=== PATIENT | male | born 1940 | race Caucasian/White ===

== ENCOUNTER → 2017-12-12 | Outpatient (CLI) | payer MEDICARE ==
[~2017-12-12] MED LIST: FINA5TAB6 PO; LISI10TA PO; MULT-358 PO; OXYC1TAB87 PO; [UNRECOGNIZED DRUG - CODE] PO
--- NOTE | 2017-12-12 12:43 | Diagnostic Imaging Report ---
PROCEDURE: MR imaging cervical spine without contrast. TECHNIQUE: Multiplanar, multisequence MR imaging of the cervical spine was performed without contrast. INDICATION: Neck stiffness for several months, increasing in severity. Patient also complains of right arm and shoulder pain as well as right hand numbness and tingling. COMPARISON: No prior studies are available for comparison. FINDINGS: Curvature and alignment is within normal limits. 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 There is multilevel degenerative disc disease with variable disc space narrowing and desiccation as well as marginal osteophyte formation. Cervical spinal cord demonstrates normal homogeneous signal intensity and normal morphology. C2-3: Central canal is patent. There is some endplate osteophytes and uncovertebral joint degenerative change however no neural foraminal narrowing is seen. C3-4: Broad-based disc/osteophyte complex and uncovertebral joint degenerative change does result in significant bilateral neural foraminal stenosis, greatest on the right. Very mild central canal narrowing is seen. C4-5: Prominent right-sided uncovertebral joint degenerative change does result in moderate neural foraminal narrowing. Left neural foramen shows mild narrowing. Central canal is patent. C5-6: Prominent uncovertebral joint degenerative changes seen bilaterally, greater on the right resulting in significant bilateral neural foraminal stenosis, right greater. Central canal is patent. C6-7: Central canal is patent. Endplate osteophytes and uncovertebral joint degenerative change result in significant bilateral neural foraminal stenosis. C7-T1: Central canal and neural foramina are patent. Paraspinous tissues are unremarkable. IMPRESSION: Cervical spondylosis. There is multilevel neural foraminal narrowing described level by level above. Mild central canal narrowing is also seen at C3-4 level. Dictated by: Dictated on workstation # [id number]
== END ==
LOC: RAD 10:40
PROVIDERS: ATTEND Physician Assistant
DX: M48.02 Spinal stenosis, cervical region (principal); M47.812 Spondylosis without myelopathy or radiculopathy, cervical region; M99.71 Connective tissue and disc stenosis of intervertebral foramina of cervical region
CPT/HCPCS: 72141

== ENCOUNTER 2020-03-19 12:03 | Emergency (ER) | payer MEDICARE ==
[~2020-03-19] VITALS: Ht 177.8 cm; Wt 99.8 kg
[2020-03-19 12:10] VITALS: BP 139/88
--- NOTE | 2020-03-19 12:23 | ED Upper Extremity ---
General Chief Complaint: Upper Extremity Stated Complaint: R ARM PAIN Source: patient Exam Limitations: no limitations History of Present Illness Date Seen by Provider: Mar 19, 2020 Time Seen by Provider: 11:53 Initial Comments Patient presents ER by private conveyance with chief complaint of a fall 3 days ago. He landed on outstretched right arm and is having some pain abducting his right arm as well as pain in his right wrist. His insisted he come to get an x-ray. No previous injury or surgery on his right upper extremity. No numbness tingling or blood thinners. Allergies and Home Medications Allergies Coded Allergies: No Known Drug Allergies (Unverified , 09/22/10) Home Medications Chromium 200 Mcg Tablet, 1,000 MCG PO DAILY, (Reported) Finasteride 5 Mg Tablet, 5 MG PO DAILY, (Reported) Hydrocodone/Acetaminophen 1 Each Tablet, 0.5-1 TAB PO Q6H PRN for PAIN-MODERATE (5-7) Prescribed by: WILDER PETERSEN on 03/19/20 1339 Lisinopril 10 Mg Tablet, 1 EACH PO DAILY, (Reported) Oxycodone Hcl/Acetaminophen 1 Tab Tablet, 1 TAB PO Q4H PRN, (Reported) Patient Home Medication List Home Medication List Reviewed: Yes Review of Systems Constitutional: No chills, No diaphoresis EENTM: No ear discharge, No ear pain Respiratory: No cough, No short of breath Cardiovascular: No chest pain, No palpitations Gastrointestinal: No abdominal pain, No nausea Genitourinary: No discharge, No dysuria Musculoskeletal: see HPI; No back pain; joint pain All Other Systems Reviewed Negative Unless Noted: Yes Past Fifhwsf-Ookyph-Mrihky Hx Patient Social History Alcohol Use: Denies Use Smoking Status: Never a Smoker Past Medical History Reproductive Disorders: No Physical Exam Vital Signs Vital Signs - First Documented 03/19/20 12:10 Temp 36.3 Pulse 86 Resp 20 B/P (MAP) 139/88 (105) Pulse Ox 99 O2 Delivery Room Air Capillary Refill : Height, Weight, BMI Height: '" Weight: lbs. oz. kg; BMI Method: General Appearance: WD/WN, mild distress HEENT: PERRL/EOMI, pharynx normal Neck: full range of motion, normal inspection Respiratory: no respiratory distress, no accessory muscle use Shoulder: normal inspection, limited ROM (Inability to abduct the right arm beyond about 15 degrees without pain. Passive range of motion intact.); No soft tissue tenderness Elbow/Forearm: normal inspection, non-tender, no evidence of injury, normal ROM, Right Wrist: Yes pain (Mild tenderness palpation distal radius and ulna right side) Hand: normal inspection, non-tender, Right Progress/Results/Core Measures Results/Orders My Orders Orders - WILDER PETERSEN Humerus, Right, 2 Views (03/19/20 12:22) Wrist, Right, 3 Views Or More (03/19/20 12:22) Vital Signs/I&O 03/19/20 12:10 Temp 36.3 Pulse 86 Resp 20 B/P (MAP) 139/88 (105) Pulse Ox 99 O2 Delivery Room Air Diagnostic Imaging Diagonstic Imaging: Xray Plain Films/CT/US/NM/MRI: forearm (r) Comments NAME: JANET SHEPPARD MED REC#: [id number] PT STATUS: REG ER : 1940 PHYSICIAN: WILDER PETERSEN MD ADMIT DATE: 03/19/20/ER Draft Date of Exam:03/19/20 WRIST, RIGHT, 3 VIEWS OR MORE Indication: Fall on ice, pain. Findings: There are arthritic changes to the radiocarpal, intercarpal and distal radial ulnar joints as well as carpometacarpal joints. No fracture however identified no articular offset. No cortical buckling or suspicious lucencies. The alignment normal. Impression: Chronic arthritic changes but no acute appearing abnormality. Dictated on workstation # [id number] Dict: 03/19/20 1244 Trans: 03/19/20 1246 [facility] [phone] Interpreted by: JOON FONSECA Electronically signed by: Reviewed: Reviewed by Me Diagonstic Imaging: Xray Plain Films/CT/US/NM/MRI: other (humerus) Comments [facility] [place], [place] NAME: SILVERJANET MED REC#: [id number] PT STATUS: REG ER : 1940 PHYSICIAN: WILDER PETERSEN MD ADMIT DATE: 02/12/21/ER Draft Date of Exam:03/19/20 HUMERUS, RIGHT, 2 VIEWS INDICATION: Fall with injury and pain. COMPARISON: None. FINDINGS: Multiple radiographic views of the right humerus were obtained and show no fractures, dislocations, or other acute bony abnormalities. Joint spaces are well maintained throughout. The soft tissues appear unremarkable. No radiopaque foreign bodies are identified. IMPRESSION: Unremarkable radiographic exam of the right humerus. Dictated on workstation # [id number] Dict: 03/19/20 1243 Trans: 03/19/20 1246 [facility] [phone] Interpreted by: LIUDMILA DE LEON MD Electronically signed by: Reviewed: Reviewed by Me Departure Impression Primary Impression: Fall Qualified Codes: W19.XXXA - Unspecified fall, initial encounter Additional Impressions: Right shoulder pain Qualified Codes: M25.511 - Pain in right shoulder Right shoulder strain Qualified Codes: S46.911A - Strain of unspecified muscle, fascia and tendon at shoulder and upper arm level, right arm, initial encounter Disposition: 01 HOME, SELF-CARE Condition: Stable Departure-Patient Inst. Decision time for Depature: 13:21 Referrals: SHRUTHI ODEN MD (PCP/Family) Primary Care Physician GINNY CASTRO MD Patient Instructions: Shoulder Pain (DC) Add. Discharge Instructions: I recommend you follow-up with your orthopedic surgeon and request reexamination of your shoulder. You appear to have strain of the muscles. You may also follow-up with physical therapy. Tylenol 650 mg every 6 hours as necessary for pain. Topical creams such as icy hot or Biofreeze can be helpful. Heat applied to your shoulder may be helpful for pain. Hydrocodone 1/2 to 1 tablet every 6 hours as necessary for severe breakthrough pain. All discharge instructions reviewed with patient and/or family. Voiced understanding. Scripts Hydrocodone/Acetaminophen (Hydrocodone-Acetamin 5-325 mg) 1 Each Tablet 0.5-1 TAB PO Q6H PRN for PAIN-MODERATE (5-7), #8 TAB 0 Refills Prov: WILDER PETERSEN 03/19/20 WILDER PETERSEN Mar 19, 2020 12:23
--- NOTE | 2020-03-19 12:46 | Diagnostic Imaging Report ---
Indication: Fall on ice, pain. Findings: There are arthritic changes to the radiocarpal, intercarpal and distal radial ulnar joints as well as carpometacarpal joints. No fracture however identified no articular offset. No cortical buckling or suspicious lucencies. The alignment normal. Impression: Chronic arthritic changes but no acute appearing abnormality. Dictated by: Dictated on workstation # [id number]
--- NOTE | 2020-03-19 12:46 | Diagnostic Imaging Report ---
INDICATION: Fall with injury and pain. COMPARISON: None. FINDINGS: Multiple radiographic views of the right humerus were obtained and show no fractures, dislocations, or other acute bony abnormalities. Joint spaces are well maintained throughout. The soft tissues appear unremarkable. No radiopaque foreign bodies are identified. IMPRESSION: Unremarkable radiographic exam of the right humerus. Dictated by: Dictated on workstation # [id number]
[2020-03-19] MEDS ORDERED: ACHD5005 PO (13:38)
== END 2020-03-19 13:52 | disposition home or self-care (01) ==
LOC: EDUNIT# 12:03 → ER 12:05
DX: S46.911A Strain of unspecified muscle, fascia and tendon at shoulder and upper arm level, right arm, initial encounter (principal); W19.XXXA Unspecified fall, initial encounter
CPT/HCPCS: 73060; 73110

== ENCOUNTER 2022-06-21 05:36 | Outpatient (CLI) | payer MEDICARE ==
[~2022-06-21] VITALS: Ht 177.8 cm; Wt 88.0 kg
[~2022-06-21 05:36] MED LIST changes: +ACHD5005 PO
[2022-07-24] MEDS ORDERED: FENO160T12 PO (13:06)
[2022-07-24] MEDS ORDERED: METF-397 PO (13:06)
[2022-07-24] MEDS ORDERED: FINA5TAB6 PO (13:06)
[2022-07-24] MEDS ORDERED: LISI20TA26 PO (13:06)
[2022-07-24] MEDS ORDERED: AMLO-251 PO (13:06)
== END 2022-07-24 13:07 | disposition home or self-care (01) ==
LOC: PREOP 05:36
PROVIDERS: ATTEND Surgery
DX: Z01.818 Encounter for other preprocedural examination (principal)

== ENCOUNTER 2022-08-01 07:10 | Day surgery (SDC) | payer MEDICARE ==
[~2022-08-01] VITALS: Ht 177.8 cm; Wt 88.0 kg
[~2022-08-01 07:10] MED LIST changes: +AMLO-251 PO; +FENO160T12 PO; +LISI20TA26 PO; +METF-397 PO
[2022-08-01] MEDS ORDERED: LACTATED RINGERS 1,000 ML IV STA (07:21)
[2022-08-01] MEDS ORDERED: PROPOFOL INJECTION 50 ML IV ONE (07:30)
[2022-08-01 07:34] VITALS: BP 157/76
[2022-08-01 08:55] VITALS: BP 157/75
--- NOTE | 2022-08-01 08:56 | Progress Note-Post Operative ---
Post-Operative Progess Note Surgeon (s)/Carpet Inspector Finished (s) Surgeon KAYLA MICHELLE DO Carpet Inspector Finished: na Pre-Operative Diagnosis screening colonoscopy Post-Operative Diagnosis colon polyps Procedure & Operative Findings Date of Procedure 08/01/22 Procedure Performed/Findings colonoscopy c hot bx polypectomy x 2 and snare polypectomy x 1 Anesthesia Type per etl consultant Estimated Blood Loss Estimated blood loss (mL): none Specimens/Packing Specimens Removed colon polyps KAYLA MICHELLE DO Aug 01, 2022 08:56
--- NOTE | 2022-08-01 08:58 | Discharge Inst-Simple/Standard ---
Discharge Inst-Standard Patient Instructions/Follow Up Plan of Care/Instructions/FU: 2 weeks Zulay Activity as Tolerated: Yes Discharge Diet: Regular Diet KAYLA MICHELLE DO Aug 01, 2022 08:58
[2022-08-01 09:00] VITALS: BP 125/62
[2022-08-01 09:04] VITALS: BP 127/61
[2022-08-01 09:29] VITALS: BP 127/61
--- NOTE | 2022-08-01 12:11 | Anesthesia-General Post-Op ---
MAC Patient Condition Mental Status/LOC: Same as Preop Cardiovascular: Satisfactory Nausea/Vomiting: Absent Respiratory: Satisfactory Pain: Controlled Complications: Absent Post Op Complications Complications None Follow Up Care/Instructions Patient Instructions None needed. Anesthesiology Discharge Order Discharge Order Patient is doing well, no complaints, stable vital signs, no apparent adverse anesthesia problems. No complications reported per nursing. VOLODYMYR CATES CRNA Aug 01, 2022 12:11
--- NOTE | 2022-08-01 14:34 | OPERATIVE REPORT ---
DATE OF SERVICE: 08/01/2022 PREOPERATIVE DIAGNOSIS: Screening colonoscopy. POSTOPERATIVE DIAGNOSIS: Colon polyps. PROCEDURE: Colonoscopy with hot biopsy polypectomy x2 and snare polypectomy x1. SURGEON: Kayla Biswas DO ANESTHESIA: Per GEOLOGY FACULTY MEMBER. ESTIMATED BLOOD LOSS: None. COMPLICATIONS: None. INDICATIONS: The patient is an 81-year-old male wanting screening colonoscopy. He understands risks and benefits of procedure and wished to proceed. Consent was signed in chart. DESCRIPTION OF PROCEDURE: The patient was taken to the endoscopy suite, placed in left lateral recumbent position. Timeout was performed. Digital rectal exam was performed. [ ] rectal polyp. No palpable masses or ulcerations. Scope was inserted in the rectum, advanced all the way to the cecum with minimal difficulty. Prep was adequate with irrigation and suction. Scope was slowly retracted back. No polyps, masses or ulcerations within the cecum, ascending and transverse colon. Descending colon has small polyp, which hot biopsy polypectomy was performed. Scope was then continuously retracted back into the sigmoid colon with a larger polyp was present. Snare polypectomy was performed. This had to be suctioned and scope withdrawn [ ] have removed, still under a centimeter though. Scope was then inserted back into the rectum, then advanced to the point of the sigmoid polyp. Scope was then continuously retracted back. No polyps, masses or ulcerations in the remainder of the sigmoid colon. Once in the rectum, scope was retroflexed. In the distal rectum, polyp present, which hot biopsy polypectomy was performed. Scope was returned to its normal position, slowly withdrawn until completely removed. The patient tolerated the procedure well without complications, taken to recovery in stable condition. RECOMMENDATIONS: The patient will need repeat colonoscopy on as needed basis. He will follow up in 2 weeks to discuss pathology results. Job ID: [id number] DocumentID: [id number] Dictated Date: 08/01/2022 09:00:25 Instrument Technologist Date: 08/01/2022 14:32:00 Dictated By: KAYLA BISWAS DO
== END 2022-08-01 10:23 | disposition home or self-care (01) ==
LOC: ENDO 07:10
PROVIDERS: ATTEND Surgery
DX: Z12.11 Encounter for screening for malignant neoplasm of colon (principal); D12.4 Benign neoplasm of descending colon; D12.5 Benign neoplasm of sigmoid colon; K62.1 Rectal polyp
CPT/HCPCS: 88305